=== PATIENT | male | born 1955 | race Caucasian/White ===

== ENCOUNTER → 2019-03-04 | Outpatient (CLI) | payer BC | LOC: LL.US 13:54 | PROVIDERS: ATTEND Nurse Practitioner Family | DX: D17.9 Benign lipomatous neoplasm, unspecified (principal) | CPT/HCPCS: 76536-LT ==

== ENCOUNTER 2019-04-04 08:29 | Day surgery (SDC) | payer BC ==
[~2019-04-04 08:29] MED LIST: Lactated Ringers 1,000 ML IV SCH; Midazolam 1 MG/ML 2 ML SDV ONE; Propofol 200 MG/20 ML SDV ONE; Sodium Chloride 0.9% 10 ML Syringe FLUSH PRN; fentaNYL 100 MCG/2 ML SDV ONE
[2019-04-04] MEDS: Lactated Ringers 1,000 ML IV SCH (09:02)
--- NOTE | 2019-04-04 09:14 | PCM.PN ---
- General Info Date of Service: 04/04/19 - Review of Systems Systems Review Comment:: 64-year-old male here for colonoscopy. He has a history of colon polyps and is here for surveillance exam. The patient also has a enlarging lipoma on the back of the left side of his neck. This is increasing least symptomatic and he is scheduled to have this excised as well. The site of this lipoma is confirmed with the patient and marked. The patient is medically stable to proceed today there is no significant recent change in his health status. I have again reviewed the proposed procedures with the patient. He agrees to proceed accepting risks. - Patient Data Weight - Most Recent: 104.326 kg Med Orders - Current: Current Medications Lactated Ringer's (Ringers, Lactated) 1,000 mls @ 125 mls/hr IV ASDIRECTED REGINA Last Admin: 04/04/19 09:02 Dose: 125 mls/hr Sodium Chloride (Saline Flush) 10 ml FLUSH ASDIRECTED PRN PRN Reason: Keep Vein Open Discontinued Medications Fentanyl (Sublimaze) Confirm Administered Dose 100 mcg .ROUTE .STK-MED ONE Stop: 04/04/19 07:57 Lactated Ringer's (Ringers, Lactated) 1,000 mls @ 125 mls/hr IV ASDIRECTED REGINA Midazolam HCl (Versed 1 Mg/Ml) Confirm Administered Dose 2 mg .ROUTE .STK-MED ONE Stop: 04/04/19 07:57 Propofol (Diprivan 20 Ml) Confirm Administered Dose 600 mg .ROUTE .STK-MED ONE Stop: 04/04/19 07:57 Sodium Chloride (Saline Flush) 10 ml FLUSH ASDIRECTED PRN PRN Reason: Keep Vein Open - Problem List Review Problem List Initiated/Reviewed/Updated: Yes - Assessment Assessment:: history of colon polyps Lipoma of the neck - Plan Plan:: colonoscopy Excision of lipoma
[2019-04-04] MEDS ORDERED: Midazolam 1 MG/ML 2 ML SDV ONE (09:16)
[2019-04-04] MEDS ORDERED: Propofol 200 MG/20 ML SDV ONE (09:16)
[2019-04-04] MEDS ORDERED: fentaNYL 100 MCG/2 ML SDV ONE (09:16)
[2019-04-04] MEDS: Bupivacaine 0.25%/EPINEPHrine 1:200,000 30 ML SDV INFILT ONE (09:33)
--- NOTE | 2019-04-04 10:45 | PCM.OPNOTE ---
- General Post-Op/Procedure Note Date of Surgery/Procedure: 04/04/19 Operative Procedure(s): colonoscopy and excision of lipoma of the neck Findings: normal colon with external hemorrhoids 5 cm benign appearing lipoma on the left side of the back of his neck Pre Op Diagnosis: neck mass. History of colon polyps Post-Op Diagnosis: external hemorrhoids. Neck mass Anesthesia Technique: Local, MAC Primary Surgeon: Rui Sneed Pathology: neck mass EBL in mLs: 10 Complications: None Condition: Good
--- NOTE | 2019-04-04 15:54 | OR ---
Date of Procedure: 04/04/2019 PREOPERATIVE DIAGNOSIS: History of colon polyps and neck mass. POSTOPERATIVE DIAGNOSIS: External hemorrhoids and neck mass. OPERATIONS PERFORMED: Colonoscopy and excision of neck mass. INDICATIONS FOR SURGERY: This 64-year-old male has a known history of colon polyps and he comes for surveillance colonoscopy. The patient also has a gradually-enlarging mass on the posterior aspect of the left side of his neck. This is increasingly symptomatic and he comes for excision of this as well. FINDINGS: In the patient's colon, no polyps were seen today. He did have some small external hemorrhoids. The remainder of the colon appears normal. On the left side of the posterior aspect of his neck, there is a soft tissue mass in the subcutaneous layer. It was lying on top of, but not invading the underlying muscle. It appeared to be consistent with benign fatty tissue and was 5 x 4 cm in size. DESCRIPTION OF PROCEDURE: The patient was taken to the operating room. He was first positioned with the left side of his neck exposed. This area was sterilely prepped with Betadine and the patient was given intravenous sedation. After draping the area, the region was infiltrated with Xylocaine with Marcaine mix. A transverse linear incision was made over the palpable and previously marked mass and dissection proceeded down onto the underlying tissue where the mass is identified. Using careful sharp and blunt dissection as well as cautery, the mass is able to be completely removed. The surrounding and underlying tissue appeared normal. It appeared that all of this fatty tissue mass was removed. It is submitted for pathologic confirmation. The wound was irrigated and then closed. The subcutaneous tissue is approximated also closing the space with interrupted 4-0 Vicryl. The skin was closed with a running 4-0 Vicryl subcuticular stitch. Benzoin and Steri-Strips were applied followed by antibiotic ointment and sterile dressing. The patient was then placed in the left lateral decubitus position. Digital rectal exam was performed showing no rectal masses. The Olympus colonoscope was inserted into the rectum. Retroflexed examination of the rectal canal was performed. The scope was then carefully advanced under direct visualization through the entire length of the colon until the cecum was reached. Cecal acquisition was confirmed by noting the normal internal cecal anatomy including the appendiceal orifice and ileocecal valve. The light was also noted to transilluminate the abdominal wall in the right lower quadrant. After examining the cecum, the scope was slowly withdrawn sequentially re-examining the colonic segments until the entire colon and rectum had been fully examined. The scope was removed and the patient was taken from the operating room in satisfactory condition. ESTIMATED BLOOD LOSS: 10 mL. COMPLICATIONS: None. PROGNOSIS: Good. JOSE Sneed MD /[id number]
[2019-04-04 17:02] VITALS: BP 122/63; PULSE 74
== END 2019-04-04 12:05 | disposition home or self-care (01) ==
LOC: LL.SDS 08:29
PROVIDERS: ATTEND Surgery
DX: Z12.11 Encounter for screening for malignant neoplasm of colon (principal); D17.0 Benign lipomatous neoplasm of skin and subcutaneous tissue of head, face and neck; K64.4 Residual hemorrhoidal skin tags; I10 Essential (primary) hypertension; K21.9 Gastro-esophageal reflux disease without esophagitis; E78.5 Hyperlipidemia, unspecified; M48.061 Spinal stenosis, lumbar region without neurogenic claudication; F33.9 Major depressive disorder, recurrent, unspecified; R35.1 Nocturia; M19.019 Primary osteoarthritis, unspecified shoulder; E66.9 Obesity, unspecified; Z68.34 Body mass index [BMI] 34.0-34.9, adult; Z87.891 Personal history of nicotine dependence; Z86.010 Personal history of colon polyps; Z79.899 Other long term (current) drug therapy
CPT/HCPCS: J2001; J2250; J2704; J3010; J7120

== ENCOUNTER 2021-04-20 10:33 | Emergency (ER) | payer OTHER, BC ==
[2021-04-20] MEDS ORDERED: Bacitracin Oint 1 GM U/D Packet TOP ONE (10:56)
--- NOTE | 2021-04-20 13:44 | EDM.PDOC ---
ED HPI GENERAL MEDICAL PROBLEM - General Chief Complaint: Laceration Stated Complaint: hand laceration Time Seen by Provider: 04/20/21 10:35 Source of Information: Reports: Patient History Limitations: Reports: No Limitations - History of Present Illness INITIAL COMMENTS - FREE TEXT/NARRATIVE: Pt. presents to ER via private vehicle from [facility] with complaints of injury to R hand. Pt. states that he sustained a puncture injury in the area of the lateral aspect of the area of the 2nd MCP joint. Pt. denies any numbness/tingling distal to area of injury. Nurse or scene reports that the injury was bleeding briskly but it had stopped with application of dressing/direct pressure by the time he arrived here. Pt. tetanus was updated in March. Denies any previous injury to area in the past. Onset: Today Onset Date: 04/20/21 Location: Reports: Upper Extremity, Right Severity: Mild - Related Data Allergies Allergy/AdvReac Type Severity Reaction Status Date / Time No Known Allergies Allergy Verified 04/04/19 09:03 Home Meds: Home Meds Esomeprazole [NexIUM] 20 mg PO DAILY 04/15/15 [History] Fish Oil/Venetia-3 Fatty Acids [Fish Oil 1,000 MG] 2,000 mg PO DAILY 04/15/15 [History] Multivitamins [Tab-A-Kathryn] 1 tab PO DAILY 04/15/15 [History] Olmesartan/Hydrochlorothiazide [Benicar HCT 20-12.5 MG] 1 tab PO DAILY 04/15/15 [History] buPROPion HCL [Bupropion Xl] 300 mg PO DAILY 04/15/15 [History] calcium polycarbophiL [Fiber Tabs] 3 tab PO TID 04/15/15 [History] Ascorbate Calcium [Vitamin C] 500 mg PO DAILY 04/04/19 [History] Aspirin/Acetaminophen/Caffeine [Migraine 250-250-65 mg Cplt] 1 tab PO Q4H PRN 04/04/19 [History] Glucosamine/D3/Boswellia Isatu [Osteo Bi-Flex Tablet] 2 tab PO DAILY 04/04/19 [History] Amoxicillin/Potassium Clav [Augmentin 875-125 Tablet] 1 each PO BID 7 Days #14 tablet 04/20/21 [Rx] atorvaSTATin [Lipitor] 40 mg PO BEDTIME 04/20/21 [History] Past Medical History HEENT History: Reports: Other (See Below) Other HEENT History: wears glasses Cardiovascular History: Reports: High Cholesterol, Hypertension Respiratory History: Reports: None Gastrointestinal History: Reports: GERD Other Gastrointestinal History: Hernia Musculoskeletal History: Reports: Other (See Below) Other Musculoskeletal History: Lumbar disc disease Neurological History: Reports: None Psychiatric History: Reports: Depression Endocrine/Metabolic History: Reports: Obesity/BMI 30+ Oncologic (Cancer) History: Reports: None Dermatologic History: Reports: None - Past Surgical History Musculoskeletal Surgical History: Reports: Knee Replacement Social & Family History - Caffeine Use Caffeine Use: Reports: Soda ED ROS GENERAL - Review of Systems Review Of Systems: Comprehensive ROS is negative, except as noted in HPI. ED EXAM, SKIN/RASH Exam: See Below Exam Limited By: No Limitations General Appearance: Alert Extremities: Other (puncture wound noted to R hand, lateral to 2nd MCP joint. Does not appear to have extended into joint space. No crepitus/deformity. CMS intact. ) Course - Orders/Labs/Meds Orders: Active Orders 24 hr Category Date Time Status Hand 2V Lt [CR] Stat Exams 04/20/21 10:42 Taken Meds: Medications Discontinued Medications Generic Name Dose Route Start Last Admin Trade Name Freq PRN Reason Stop Dose Admin Bacitracin 1 dose 04/20/21 10:56 04/20/21 11:26 Bacitracin Oint 1 Gm U/D Packet TOP 04/20/21 10:57 1 dose ONETIME ONE Administration - Radiology Interpretation Free Text/Narrative:: Radiographs of R hand did not reveal any acute abnormality. Departure - Departure Time of Disposition: 11:15 Disposition: Home, Self-Care 01 Clinical Impression: Puncture wound, hand - Discharge Information Prescriptions: Amoxicillin/Potassium Clav [Augmentin 875-125 Tablet] 1 each PO BID 7 Days #14 tablet Instructions: Puncture Wound, [id number] Referrals: Zainab Chaney NP [Primary Care Provider] - Forms: ED Department Discharge Additional Instructions: Change dressing once daily. You can just cover it with a bandaid tomorrow. Keep pressure dressing on today. Keep open to air as much as possible. Cover if you anticipate the area getting dirty again. Tylenol and ibuprofen as needed for discomfort. Augmentin 875mg 1 twice daily for 7 days Follow-up in clinic/return to ER if you notice any redness, swelling, increased discomfort, or discharge from the area. - Problem List Review Problem List Initiated/Reviewed/Updated: Yes - My Orders Last 24 Hours: My Active Orders 04/20/21 10:42 Hand 2V Lt [CR] Stat - Assessment/Plan Last 24 Hours: My Active Orders 04/20/21 10:42 Hand 2V Lt [CR] Stat Plan: Change dressing once daily. You can just cover it with a bandaid tomorrow. Keep pressure dressing on today. Keep open to air as much as possible. Cover if you anticipate the area getting dirty again. Tylenol and ibuprofen as needed for discomfort. Augmentin 875mg 1 twice daily for 7 days Follow-up in clinic/return to ER if you notice any redness, swelling, increased discomfort, or discharge from the area.
[2021-04-20 20:36] VITALS: BP 168/86; PULSE 89
== END 2021-04-20 11:56 | disposition home or self-care (01) ==
LOC: LL.ED 10:33
DX: S61.431A Puncture wound without foreign body of right hand, initial encounter (principal); E78.00 Pure hypercholesterolemia, unspecified; I10 Essential (primary) hypertension; K21.9 Gastro-esophageal reflux disease without esophagitis; E66.9 Obesity, unspecified; Z79.82 Long term (current) use of aspirin; Z79.899 Other long term (current) drug therapy; W26.8XXA Contact with other sharp object(s), not elsewhere classified, initial encounter; Y92.89 Other specified places as the place of occurrence of the external cause; Y99.0 Civilian activity done for income or pay
CPT/HCPCS: 73120-LT; 99283